=== PATIENT | female | born 1990 | race Caucasian/White ===

== ENCOUNTER 2023-09-25 12:22 | Emergency (ER) | payer SELFPAY ==
[~2023-09-25] VITALS: Ht 170.2 cm; Wt 54.5 kg
== END 2023-09-25 13:00 | disposition left against medical advice (07) ==
LOC: ER 12:22
DX: T25.022D Burn of unspecified degree of left foot, subsequent encounter (principal); Z53.21 Procedure and treatment not carried out due to patient leaving prior to being seen by health care provider; X58.XXXD Exposure to other specified factors, subsequent encounter

== ENCOUNTER 2023-09-26 23:39 | Emergency (ER) | payer SELFPAY ==
[~2023-09-26] VITALS: Ht 167.6 cm; Wt 61.5 kg
[2023-09-27 01:33] LABS: Basophils # (auto) 0 10 ^3/uL (0-0.2); Basophils % (auto) 0.4 % (0.0-2.0); Eosinophils # (auto) 0 10 ^3/uL (0-0.8); Eosinophils % (auto) 0.2 % (0.0-7.0); Hematocrit 38.5 % (36.0-46.0); Hemoglobin 13.2 g/dL (12.2-16.2); Lymphocytes # (auto) 2.2 10 ^3/uL (0.4-5.4); Lymphocytes % (auto) 18.9 % (10.0-50.0); Mean Corpuscular Hemoglobin 30.5 pg (28.0-32.0); Mean Corpuscular Hgb Conc. 34.1 g/dL (32.0-36.0); Mean Corpuscular Volume 89.5 fL (80.0-100.0); Monocytes # (auto) 0.9 10 ^3/uL (0-1.3); Monocytes % (auto) 7.5 % (0.0-12.0); Neutrophils # (auto) 8.3 10 ^3/uL (1.6-8.6); Nucleated Red Blood Cells % 0.1 %; Red Cell Distribution Width 13.4 % (11.8-14.3); White Blood Cell 11.4 10^3/uL (4.4-10.8)
[2023-09-27] MEDS ORDERED: SILV1CRE82 TOP (01:34)
[2023-09-27] MEDS ORDERED: BACITRACIN TOP OINT 1 UD PKG TOP ONE (01:45)
[2023-09-27 01:48] LABS: Alanine Aminotransferase 18 U/L (7-40); Albumin 4.4 g/dL (3.2-4.8); Alkaline Phosphatase 73 U/L (46-116); Anion Gap 5 (5-15); Aspartate Aminotransferase 15 U/L (13-40); BUN/Creatinine Ratio 10.7 (10.0-20.0); Blood Urea Nitrogen 8 mg/dL (9-23); Calcium 9.5 mg/dL (8.7-10.4); Carbon Dioxide 28 mmol/L (20-30); Chloride 104 mmol/L (98-107); Glucose 110 mg/dL (74-106); Potassium 4.1 mmol/L (3.5-5.1); Sodium 137 mmol/L (136-145)
[2023-09-27 01:49] LABS: Bilirubin, Total 0.4 mg/dL (0.2-1.0); Total Protein 7.2 g/dL (5.7-8.2)
[2023-09-27 03:38] VITALS: BP 101/68; PULSE 110; RESP 17; TEMP 98.5; O2SAT 97
== END 2023-09-27 03:38 | disposition home or self-care (01) ==
LOC: ER 23:39
DX: T24.002D Burn of unspecified degree of unspecified site of left lower limb, except ankle and foot, subsequent encounter (principal); X58.XXXD Exposure to other specified factors, subsequent encounter
CPT/HCPCS: 36415; 80053; 83605; 85025

== ENCOUNTER 2023-10-02 10:55 | Emergency (ER) | payer MEDICAID, OTHER ==
[~2023-10-02] VITALS: Ht 170.2 cm; Wt 63.6 kg
[~2023-10-02 10:55] MED LIST: SILV1CRE82 TOP
[2023-10-02 11:10] VITALS: BP 96/68; PULSE 91; RESP 18; O2SAT 97
== END 2023-10-02 13:17 | disposition left against medical advice (07) ==
LOC: ER 10:55
DX: T25.012D Burn of unspecified degree of left ankle, subsequent encounter (principal); Z48.00 Encounter for change or removal of nonsurgical wound dressing; Z53.21 Procedure and treatment not carried out due to patient leaving prior to being seen by health care provider; X08.8XXD Exposure to other specified smoke, fire and flames, subsequent encounter